=== PATIENT | female | born 1970 | race African-American/Black ===

== ENCOUNTER 2024-08-22 08:09 | Emergency (ER) | payer MEDICAID ==
[~2024-08-22] VITALS: Ht 167.6 cm; Wt 54.4 kg
[2024-08-22 09:19] LABS: BASOPHILS % (AUTO) 0.6 % (0.0-2.0); EOSINOPHILS # (AUTO) 0.1 K/uL (0.0-0.7); EOSINOPHILS % (AUTO) 2.4 % (0.0-7.0); HEMATOCRIT 34.8 % (31.2-41.9); HEMOGLOBIN 11.5 g/dL (10.9-14.3); LYMPHOCYTES # (AUTO) 1.4 K/uL (0.8-4.8); LYMPHOCYTES % (AUTO) 24.4 % (20.5-51.5); MEAN CORPUSCULAR HEMOGLOBIN 28.5 uug (24.7-32.8); MEAN CORPUSCULAR HGB CONC 33 g/dL (32.3-35.6); MEAN CORPUSCULAR VOLUME 86.2 fL (75.5-95.3); MONOCYTES # (AUTO) 0.6 K/uL (0.1-1.30); MONOCYTES % (AUTO) 9.5 % (0.0-11.0); NEUTROPHILS # (AUTO) 3.7 K/uL (1.8-8.9); NEUTROPHILS % (AUTO) 63.1 % (38.5-71.5); PLATELET COUNT (AUTO) 351 K/uL (179-408); RED BLOOD CELL COUNT(AUTO) 4.03 MIL/uL (3.63-4.92); RED CELL DISTRIBUTION WIDTH 16.9 % (12.3-17.7); WHITE BLOOD COUNT (AUTO) 5.8 K/uL (3.8-11.8)
[2024-08-22 09:24] LABS: DIFFERENTIAL COMMENT 1
[2024-08-22] MEDS ORDERED: NITROGLYCERIN OINT 1 GM PACKET TP ONE (09:28)
[2024-08-22] MEDS ORDERED: METOPROLOL TARTRATE 50 MG TABLET ONE (09:28)
[2024-08-22 09:31] LABS: CALCIUM 8.5 mg/dL (8.5-10.1); CARBON DIOXIDE 28 mmol/L (21-32); CHLORIDE 108 mmol/L (98-107); CREATININE 3.3 mg/dL (0.6-1.3); GLUCOSE 242 mg/dL (74-106); POTASSIUM 3.8 mmol/L (3.5-5.1); SODIUM SERUM 144 mmol/L (136-145); UREA NITROGEN, BLOOD 23 mg/dL (7-18)
[2024-08-22] MEDS: NITROGLYCERIN OINT 1 GM PACKET TP ONE (09:32)
[2024-08-22] MEDS: METOPROLOL TARTRATE 50 MG TABLET PO ONE (09:32)
[2024-08-22] MEDS ORDERED: METOPROLOL TARTRATE 5 MG/5 ML VIAL IVP ONE (09:46)
[2024-08-22] MEDS ORDERED: ONDANSETRON 4 MG/2 ML VIAL ONE (09:46)
[2024-08-22] MEDS ORDERED: HYDROMORPHONE 1 MG/1 ML DISP.SYRIN ONE (09:47)
[2024-08-22] MEDS: HYDROMORPHONE 1 MG/1 ML DISP.SYRIN IV ONE (09:50)
[2024-08-22] MEDS: ONDANSETRON 4 MG/2 ML VIAL IV ONE (09:50)
[2024-08-22] MEDS: METOPROLOL TARTRATE 5 MG/5 ML VIAL IVP ONE (09:55)
[2024-08-22] MEDS ORDERED: CLONIDINE HCL 0.1 MG TABLET ONE ×2 (11:08→12:52)
[2024-08-22] MEDS: CLONIDINE HCL 0.1 MG TABLET PO ONE ×2 (11:11→12:57)
[2024-08-22] MEDS ORDERED: HYDR-3980 PO (15:51)
[2024-08-22] MEDS ORDERED: FLAS1KIT2 TP (15:51)
[2024-08-22] MEDS ORDERED: FLAS1EAC2 TP (15:51)
[2024-08-22] MEDS ORDERED: CLON0.3P TD (15:51)
[2024-08-22 17:40] VITALS: BP 148/77; TEMP 97.7; O2SAT 97
== END 2024-08-22 17:45 | disposition home or self-care (01) ==
LOC: ER 08:26
DX: R07.89 Other chest pain (principal); E11.22 Type 2 diabetes mellitus with diabetic chronic kidney disease; I13.11 Hypertensive heart and chronic kidney disease without heart failure, with stage 5 chronic kidney disease, or end stage renal disease; I25.10 Atherosclerotic heart disease of native coronary artery without angina pectoris; N18.6 End stage renal disease; R06.00 Dyspnea, unspecified; Z99.2 Dependence on renal dialysis
CPT/HCPCS: 99285; 78580; 96374; 96375; 71045; 80048; 85025; 85379; 84484 ×2; 36415; 93005; 83605; A9540; J3490; J2405; J1171; A4606; A4663

== ENCOUNTER 2024-08-30 01:08 | Emergency (ER) | payer MEDICAID ==
[~2024-08-30] VITALS: Ht 167.6 cm; Wt 54.4 kg
[~2024-08-30 01:08] MED LIST: CLON0.3P TD; FLAS1EAC2 TP; FLAS1KIT2 TP; HYDR-3980 PO
[2024-08-30] MEDS: hydrALAZINE HCL 20 MG/1 ML VIAL IV ONE ×2 (01:45→05:00)
[2024-08-30] MEDS: HYDROMORPHONE 1 MG/1 ML DISP.SYRIN IV ONE (01:45)
[2024-08-30 01:50] LABS: BASOPHILS # (AUTO) 0.1 K/UL (0.0-0.2); BASOPHILS % (AUTO) 0.7 % (0.0-2.0); EOSINOPHILS # (AUTO) 0.2 K/uL (0.0-0.7); EOSINOPHILS % (AUTO) 2.6 % (0.0-7.0); HEMATOCRIT 33.8 % (31.2-41.9); HEMOGLOBIN 10.9 g/dL (10.9-14.3); LYMPHOCYTES # (AUTO) 2.3 K/uL (0.8-4.8); LYMPHOCYTES % (AUTO) 32.7 % (20.5-51.5); MEAN CORPUSCULAR HEMOGLOBIN 27.6 uug (24.7-32.8); MEAN CORPUSCULAR HGB CONC 32 g/dL (32.3-35.6); MEAN CORPUSCULAR VOLUME 85.4 fL (75.5-95.3); MONOCYTES # (AUTO) 0.5 K/uL (0.1-1.30); MONOCYTES % (AUTO) 6.9 % (0.0-11.0); NEUTROPHILS # (AUTO) 4.1 K/uL (1.8-8.9); NEUTROPHILS % (AUTO) 57.1 % (38.5-71.5); PLATELET COUNT (AUTO) 275 K/uL (179-408); RED BLOOD CELL COUNT(AUTO) 3.96 MIL/uL (3.63-4.92); RED CELL DISTRIBUTION WIDTH 17.3 % (12.3-17.7); WHITE BLOOD COUNT (AUTO) 7.1 K/uL (3.8-11.8)
[2024-08-30 02:11] LABS: DIFFERENTIAL COMMENT 1
[2024-08-30] MEDS ORDERED: HYDROMORPHONE 1 MG/1 ML DISP.SYRIN ONE (02:17)
[2024-08-30] MEDS ORDERED: hydrALAZINE HCL 20 MG/1 ML VIAL ONE ×2 (02:17→04:51)
[2024-08-30 02:19] LABS: ALANINE AMINOTRANSFERASE 11 U/L (14-59); ALKALINE PHOSPHATASE 146 U/L (50-136); ASPARTATE AMINOTRANSFERASE < 5 U/L (15-37); BILIRUBIN,DIRECT 0.1 mg/dL (0.0-0.2); BILIRUBIN,TOTAL 0.1 mg/dL (0.2-1.0); CALCIUM 8.6 mg/dL (8.5-10.1); CARBON DIOXIDE 27 mmol/L (21-32); CHLORIDE 103 mmol/L (98-107); CREATININE 4.4 mg/dL (0.6-1.3); GLUCOSE 220 mg/dL (74-106); NT-PRO BNP 4647 pg/mL (0-125); POTASSIUM 5.2 mmol/L (3.5-5.1); SODIUM SERUM 138 mmol/L (136-145); TOTAL PROTEIN, SERUM 7.2 g/dL (6.4-8.2); UREA NITROGEN, BLOOD 54 mg/dL (7-18)
[2024-08-30] MEDS ORDERED: GABA100C PO (03:31)
[2024-08-30] MEDS ORDERED: HYDR-501 PO (03:31)
[2024-08-30] MEDS: GABAPENTIN 100 MG CAPSULE PO ONE (04:00)
[2024-08-30] MEDS ORDERED: GABAPENTIN 100 MG CAPSULE ONE (04:03)
[2024-08-30 05:45] VITALS: BP 144/83; TEMP 98; O2SAT 98
== END 2024-08-30 05:20 | disposition home or self-care (01) ==
LOC: ER 01:14
DX: R07.89 Other chest pain (principal); G89.29 Other chronic pain; B02.9 Zoster without complications; B02.29 Other postherpetic nervous system involvement; I13.2 Hypertensive heart and chronic kidney disease with heart failure and with stage 5 chronic kidney disease, or end stage renal disease; I50.9 Heart failure, unspecified; N18.6 End stage renal disease; E11.22 Type 2 diabetes mellitus with diabetic chronic kidney disease; E78.5 Hyperlipidemia, unspecified; F41.9 Anxiety disorder, unspecified; Z79.4 Long term (current) use of insulin; Z79.899 Other long term (current) drug therapy; Z86.73 Personal history of transient ischemic attack (TIA), and cerebral infarction without residual deficits; Z99.2 Dependence on renal dialysis
CPT/HCPCS: 99285; 96374; 71045; 96375; 80076; 80048; 83880; 85025; 85730; 84484; 36415; 93005; 96376; J0360 ×2; J1171; A4606; A4663

== ENCOUNTER 2024-09-08 13:13 | Inpatient (IN) | payer MEDICAID ==
[~2024-09-08] VITALS: Ht 162.6 cm; Wt 61.7 kg
[~2024-09-08 13:13] MED LIST changes: +GABA100C PO; +HYDR-501 PO
[2024-09-08 14:56] LABS: BASOPHILS % (AUTO) 0.7 % (0.0-2.0); EOSINOPHILS # (AUTO) 0.2 K/uL (0.0-0.7); EOSINOPHILS % (AUTO) 2.7 % (0.0-7.0); HEMATOCRIT 33.6 % (31.2-41.9); LYMPHOCYTES # (AUTO) 1.7 K/uL (0.8-4.8); LYMPHOCYTES % (AUTO) 30.2 % (20.5-51.5); MEAN CORPUSCULAR HEMOGLOBIN 27.6 uug (24.7-32.8); MEAN CORPUSCULAR HGB CONC 33 g/dL (32.3-35.6); MEAN CORPUSCULAR VOLUME 84.3 fL (75.5-95.3); MONOCYTES # (AUTO) 0.5 K/uL (0.1-1.30); MONOCYTES % (AUTO) 7.9 % (0.0-11.0); NEUTROPHILS # (AUTO) 3.4 K/uL (1.8-8.9); NEUTROPHILS % (AUTO) 58.5 % (38.5-71.5); PLATELET COUNT (AUTO) 268 K/uL (179-408); RED BLOOD CELL COUNT(AUTO) 3.98 MIL/uL (3.63-4.92); RED CELL DISTRIBUTION WIDTH 16.5 % (12.3-17.7); WHITE BLOOD COUNT (AUTO) 5.7 K/uL (3.8-11.8)
[2024-09-08 14:57] LABS: DIFFERENTIAL COMMENT 1
[2024-09-08 15:04] LABS: CALCIUM 8.4 mg/dL (8.5-10.1); CARBON DIOXIDE 26 mmol/L (21-32); CHLORIDE 105 mmol/L (98-107); CREATININE 4.5 mg/dL (0.6-1.3); GLUCOSE 287 mg/dL (74-106); POTASSIUM 4.2 mmol/L (3.5-5.1); SODIUM SERUM 143 mmol/L (136-145); UREA NITROGEN, BLOOD 42 mg/dL (7-18)
[2024-09-08 15:07] LABS: AMMONIA < 10 umol/L (11-32)
[2024-09-08 15:17] LABS: ALANINE AMINOTRANSFERASE 10 U/L (14-59); ALKALINE PHOSPHATASE 134 U/L (50-136); ASPARTATE AMINOTRANSFERASE 7 U/L (15-37); BILIRUBIN,DIRECT 0.1 mg/dL (0.0-0.2); BILIRUBIN,TOTAL 0.3 mg/dL (0.2-1.0); TOTAL PROTEIN, SERUM 6.9 g/dL (6.4-8.2)
[2024-09-08 15:33] LABS: ACETAMINOPHEN < 2.0 ug/mL (10-30)
[2024-09-08 15:47] LABS: ETHANOL < 3 MG/DL (0-10)
[2024-09-08] MEDS ORDERED: ONDANSETRON 4 MG/2 ML VIAL ONE (18:51)
[2024-09-08] MEDS ORDERED: HYDROMORPHONE 1 MG/1 ML DISP.SYRIN ONE (18:52)
[2024-09-08] MEDS: ONDANSETRON 4 MG/2 ML VIAL IV ONE (18:56)
[2024-09-08] MEDS: HYDROMORPHONE 1 MG/1 ML DISP.SYRIN IV ONE (18:57)
[2024-09-08] MEDS ORDERED: REMEDY ESSENTIAL ZINC PASTE 113 GM TP PRN (19:30)
[2024-09-08] MEDS ORDERED: ONDANSETRON 4 MG/2 ML VIAL IV PRN (19:30)
[2024-09-08] MEDS ORDERED: MAGNESIUM HYDROXIDE 30 ML LIQUID UDC PO PRN (19:30)
[2024-09-08] MEDS ORDERED: ACETAMINOPHEN 325 MG TABLET PO PRN (19:30)
[2024-09-09] MEDS ORDERED: MAGNESIUM HYDROXIDE 30 ML LIQUID UDC PO PRN (02:45)
[2024-09-09] MEDS ORDERED: DEXTROSE 50% 50 ML DISP.SYRIN IV PRN (02:45)
[2024-09-09] MEDS: hydrALAZINE HCL 20 MG/1 ML VIAL IV PRN (03:32)
[2024-09-09] MEDS: ACETAMINOPHEN 325 MG TABLET PO PRN (04:37)
[2024-09-09 05:21] VITALS: BP 156/69; TEMP 97.5; O2SAT 99
[2024-09-09] MEDS ORDERED: HYDROMORPHONE 1 MG/1 ML DISP.SYRIN IV PRN (06:00)
[2024-09-09] MEDS ORDERED: HYDROMORPHONE 1 MG/1 ML DISP.SYRIN IV ONE (06:15)
[2024-09-09 06:43] LABS: BASOPHILS % (AUTO) 0.9 % (0.0-2.0); EOSINOPHILS # (AUTO) 0.1 K/uL (0.0-0.7); EOSINOPHILS % (AUTO) 2.5 % (0.0-7.0); HEMOGLOBIN 11.3 g/dL (10.9-14.3); LYMPHOCYTES # (AUTO) 1.5 K/uL (0.8-4.8); LYMPHOCYTES % (AUTO) 27.4 % (20.5-51.5); MEAN CORPUSCULAR HGB CONC 35 g/dL (32.3-35.6); MEAN CORPUSCULAR VOLUME 90.6 fL (75.5-95.3); MONOCYTES # (AUTO) 0.4 K/uL (0.1-1.30); NEUTROPHILS # (AUTO) 3.3 K/uL (1.8-8.9); NEUTROPHILS % (AUTO) 62.2 % (38.5-71.5); PLATELET COUNT (AUTO) 270 K/uL (179-408); RED BLOOD CELL COUNT(AUTO) 3.53 MIL/uL (3.63-4.92); RED CELL DISTRIBUTION WIDTH 16.4 % (12.3-17.7); WHITE BLOOD COUNT (AUTO) 5.3 K/uL (3.8-11.8)
[2024-09-09 06:50] LABS: CALCIUM 8.4 mg/dL (8.5-10.1); CREATININE 5.1 mg/dL (0.6-1.3); MAGNESIUM 1.6 mg/dL (1.8-2.4); PHOSPHOROUS 5.3 mg/dL (2.5-4.9)
[2024-09-09] MEDS: BLOOD SUGAR DIAGNOSTIC 1 EACH STRIP VI SCH (07:19)
[2024-09-09 07:31] LABS: DIFFERENTIAL COMMENT 1
[2024-09-09] MEDS: INSULIN REGULAR, HUMAN 1000 UNIT/10 ML VIAL SQ PRN (07:39)
[2024-09-09] MEDS: GABAPENTIN 100 MG CAPSULE PO SCH ×2 (08:15→16:14)
[2024-09-09] MEDS: MAGNESIUM OXIDE 400 MG TABLET PO ONE (08:47)
[2024-09-09 11:37] VITALS: BP 145/77; TEMP 97.9; O2SAT 99
[2024-09-09] MEDS ORDERED: METO25TA6 PO (13:43)
[2024-09-09] MEDS ORDERED: ASPI81TA31 PO (13:43)
[2024-09-09] MEDS ORDERED: DOCU100T2 PO (13:43)
[2024-09-09] MEDS ORDERED: HYDR-3980 PO (13:43)
[2024-09-09] MEDS ORDERED: GABA100C PO (13:43)
[2024-09-09] MEDS ORDERED: ESCI10TA PO (13:43)
[2024-09-09] MEDS ORDERED: INSU100V7 SQ (13:43)
[2024-09-09] MEDS ORDERED: ATOR20TA PO (13:43)
[2024-09-09] MEDS ORDERED: AMLO10TA59 PO (13:43)
[2024-09-09] MEDS ORDERED: LOSA100T31 PO (13:43)
[2024-09-09] MEDS ORDERED: TRAM50TA2 PO (13:43)
[2024-09-09] MEDS ORDERED: QUET25TA PO (13:43)
[2024-09-09] MEDS ORDERED: TRAMADOL HCL 50 MG TABLET PO PRN (14:00)
[2024-09-09 15:47] VITALS: BP 152/70; TEMP 98.6; O2SAT 94
[2024-09-09] MEDS: DOCUSATE SODIUM 100 MG CAPSULE PO SCH (16:14)
[2024-09-09] MEDS: METOPROLOL TARTRATE 25 MG TABLET PO SCH (16:14)
[2024-09-09] MEDS ORDERED: Medication Not On Formulary EA (Docusate Sodium 100 MG) PO SCH (17:00)
[2024-09-09 19:15] VITALS: BP 148/94; TEMP 97.2; O2SAT 100
[2024-09-09] MEDS: HYDROCODONE/APAP 10-325 MG TABLET PO PRN (22:07)
[2024-09-09] MEDS: QUETIAPINE FUMARATE 25 MG TABLET PO SCH (22:15)
[2024-09-10 06:03] VITALS: BP 154/72; TEMP 96.9; O2SAT 95
[2024-09-10 07:53] LABS: CALCIUM 8.1 mg/dL (8.5-10.1); CREATININE 3.9 mg/dL (0.6-1.3); MAGNESIUM 1.9 mg/dL (1.8-2.4); POTASSIUM 3.7 mmol/L (3.5-5.1)
[2024-09-10] MEDS: AMLODIPINE 10 MG TABLET PO SCH (08:14)
[2024-09-10] MEDS: LOSARTAN POTASSIUM 50 MG TABLET PO SCH (08:14)
[2024-09-10] MEDS: ASPIRIN 81 MG TAB.CHEW PO SCH (08:14)
[2024-09-10] MEDS: ONDANSETRON 4 MG/2 ML VIAL IV PRN (08:23)
[2024-09-10] MEDS ORDERED: Medication Not On Formulary EA (Losartan Potassium 100 MG) PO SCH (09:00)
[2024-09-10] MEDS ORDERED: ESCITALOPRAM OXALATE 10 MG TABLET PO SCH (09:00)
[2024-09-10] MEDS: PANTOPRAZOLE SODIUM 40 MG VIAL IV SCH (09:50)
[2024-09-10 12:14] VITALS: BP 134/73; TEMP 98.2; O2SAT 100
[2024-09-10 16:11] VITALS: BP 124/76; TEMP 98.6; O2SAT 100
[2024-09-10 20:00] VITALS: BP 154/81; TEMP 98; O2SAT 99
[2024-09-10] MEDS: BLOOD SUGAR DIAGNOSTIC 1 EACH STRIP VI ONE (20:20)
[2024-09-11 06:06] LABS: HEPATITIS B SURFACE AB, QUAL Reactive (.); HEPATITIS B SURFACE AG Negative (Negative)
[2024-09-11 06:40] VITALS: BP 156/79; TEMP 98.2; O2SAT 97
[2024-09-11 06:47] LABS: BASOPHILS % (AUTO) 0.7 % (0.0-2.0); EOSINOPHILS # (AUTO) 0.2 K/uL (0.0-0.7); EOSINOPHILS % (AUTO) 3.6 % (0.0-7.0); HEMATOCRIT 33.4 % (31.2-41.9); HEMOGLOBIN 10.8 g/dL (10.9-14.3); LYMPHOCYTES # (AUTO) 1.7 K/uL (0.8-4.8); MEAN CORPUSCULAR HEMOGLOBIN 27.5 uug (24.7-32.8); MEAN CORPUSCULAR HGB CONC 32 g/dL (32.3-35.6); MEAN CORPUSCULAR VOLUME 85.1 fL (75.5-95.3); MONOCYTES # (AUTO) 0.5 K/uL (0.1-1.30); MONOCYTES % (AUTO) 10.8 % (0.0-11.0); NEUTROPHILS # (AUTO) 1.9 K/uL (1.8-8.9); NEUTROPHILS % (AUTO) 44.9 % (38.5-71.5); PLATELET COUNT (AUTO) 268 K/uL (179-408); RED BLOOD CELL COUNT(AUTO) 3.92 MIL/uL (3.63-4.92); WHITE BLOOD COUNT (AUTO) 4.3 K/uL (3.8-11.8)
[2024-09-11 07:10] LABS: DIFFERENTIAL COMMENT 1
[2024-09-11 07:12] LABS: CALCIUM 7.8 mg/dL (8.5-10.1); CREATININE 4.9 mg/dL (0.6-1.3); POTASSIUM 4.1 mmol/L (3.5-5.1)
[2024-09-11] MEDS: PANTOPRAZOLE SODIUM 40 MG TABLET.DR PO SCH (07:45)
[2024-09-11 08:14] VITALS: BP 156/79
[2024-09-11] MEDS: QUETIAPINE FUMARATE 25 MG TABLET PO SCH (08:27)
== END 2024-09-11 15:30 | disposition home or self-care (01) | DRG 241 ==
LOC: ER 13:13 → MEDSURG3 23:00
PROVIDERS: ADMIT Internal Medicine; ATTEND Internal Medicine
PROC: 5A1D70Z Performance of Urinary Filtration, Intermittent, Less than 6 Hours Per Day (ICD-10-PCS; principal; 2024-09-09)
PROC: 0DB68ZX Excision of Stomach, Via Natural or Artificial Opening Endoscopic, Diagnostic (ICD-10-PCS; 2024-09-10)
DX: K29.70 Gastritis, unspecified, without bleeding (principal); G93.41 Metabolic encephalopathy; J90 Pleural effusion, not elsewhere classified; I13.11 Hypertensive heart and chronic kidney disease without heart failure, with stage 5 chronic kidney disease, or end stage renal disease; D63.8 Anemia in other chronic diseases classified elsewhere; F29 Unspecified psychosis not due to a substance or known physiological condition; N18.6 End stage renal disease; E11.22 Type 2 diabetes mellitus with diabetic chronic kidney disease; H54.7 Unspecified visual loss; I69.398 Other sequelae of cerebral infarction; Z99.2 Dependence on renal dialysis; Z79.4 Long term (current) use of insulin; E78.5 Hyperlipidemia, unspecified; E11.42 Type 2 diabetes mellitus with diabetic polyneuropathy; R13.10 Dysphagia, unspecified; K80.20 Calculus of gallbladder without cholecystitis without obstruction
CPT/HCPCS: 36415; 70450; 71045; 83605; 83735; 84100; 84484; 85025; 85730; 86706; 87040; 87340; 90937; C1758; G0378; G0480; J0360; J1171; J1815; J2405; J2470; J7040

== ENCOUNTER 2024-10-19 19:57 | Inpatient (IN) | payer MEDICAID ==
[~2024-10-19] VITALS: Ht 165.1 cm; Wt 57.6 kg
[~2024-10-19 19:57] MED LIST changes: +AMLO10TA59 PO; +ASPI81TA31 PO; +ATOR20TA PO; -CLON0.3P TD; +DOCU100T2 PO; +ESCI10TA PO; -FLAS1EAC2 TP; -FLAS1KIT2 TP; -HYDR-501 PO; +INSU100V7 SQ; +LOSA100T31 PO; +METO25TA6 PO; +QUET25TA PO; +TRAM50TA2 PO
[2024-10-19] MEDS ORDERED: NITROGLYCERIN 0.4 MG/TAB BOTTLE SL ONE (20:38)
[2024-10-19 20:49] LABS: BASOPHILS % (AUTO) 0.8 % (0.0-2.0); EOSINOPHILS # (AUTO) 0.1 K/uL (0.0-0.7); EOSINOPHILS % (AUTO) 1.5 % (0.0-7.0); HEMATOCRIT 34.1 % (31.2-41.9); HEMOGLOBIN 11.1 g/dL (10.9-14.3); LYMPHOCYTES # (AUTO) 1.8 K/uL (0.8-4.8); LYMPHOCYTES % (AUTO) 31.6 % (20.5-51.5); MEAN CORPUSCULAR HEMOGLOBIN 26.6 uug (24.7-32.8); MEAN CORPUSCULAR HGB CONC 33 g/dL (32.3-35.6); MEAN CORPUSCULAR VOLUME 82.1 fL (75.5-95.3); MONOCYTES # (AUTO) 0.5 K/uL (0.1-1.30); MONOCYTES % (AUTO) 9.3 % (0.0-11.0); NEUTROPHILS # (AUTO) 3.2 K/uL (1.8-8.9); NEUTROPHILS % (AUTO) 56.8 % (38.5-71.5); PLATELET COUNT (AUTO) 223 K/uL (179-408); RED BLOOD CELL COUNT(AUTO) 4.15 MIL/uL (3.63-4.92); RED CELL DISTRIBUTION WIDTH 17.4 % (12.3-17.7); WHITE BLOOD COUNT (AUTO) 5.6 K/uL (3.8-11.8)
[2024-10-19] MEDS ORDERED: FAMOTIDINE. 20 MG/2 ML VIAL IV ONE (20:51)
[2024-10-19] MEDS ORDERED: METOCLOPRAMIDE HCL 10 MG/2 ML VIAL ONE (20:51)
[2024-10-19 20:53] LABS: CALCIUM 8.7 mg/dL (8.5-10.1); CARBON DIOXIDE 30 mmol/L (21-32); CHLORIDE 104 mmol/L (98-107); CREATININE 3.7 mg/dL (0.6-1.3); DIFFERENTIAL COMMENT 1; GLUCOSE 174 mg/dL (74-106); POTASSIUM 3.9 mmol/L (3.5-5.1); SODIUM SERUM 139 mmol/L (136-145); UREA NITROGEN, BLOOD 22 mg/dL (7-18)
[2024-10-19] MEDS: METOCLOPRAMIDE HCL 10 MG/2 ML VIAL IV ONE (21:00)
[2024-10-19] MEDS: FAMOTIDINE. 20 MG/2 ML VIAL IV ONE (21:00)
[2024-10-19] MEDS: NITROGLYCERIN 0.4 MG/TAB BOTTLE SL ONE (21:01)
[2024-10-19] MEDS ORDERED: hydrALAZINE HCL 20 MG/1 ML VIAL ONE (21:04)
[2024-10-19] MEDS ORDERED: MORPHINE SULFATE 2 MG/1 ML DISP.SYRIN ONE (21:04)
[2024-10-19 21:06] LABS: ALANINE AMINOTRANSFERASE 17 U/L (14-59); ALBUMIN 2.1 g/dL (3.4-5.0); ALKALINE PHOSPHATASE 93 U/L (50-136); ASPARTATE AMINOTRANSFERASE 21 U/L (15-37); BILIRUBIN,DIRECT 0.1 mg/dL (0.0-0.2); BILIRUBIN,TOTAL 0.1 mg/dL (0.2-1.0); NT-PRO BNP 45522 pg/mL (0-125); TOTAL PROTEIN, SERUM 6.6 g/dL (6.4-8.2)
[2024-10-19] MEDS: hydrALAZINE HCL 20 MG/1 ML VIAL IV ONE (21:28)
[2024-10-19] MEDS: MORPHINE SULFATE 2 MG/1 ML DISP.SYRIN IV ONE (21:29)
[2024-10-19] MEDS: ASPIRIN 81 MG TAB.CHEW PO ONE (21:40)
[2024-10-20] VITALS (12 sets, daily range): BP systolic 142–181; BP diastolic 68–95; TEMP 97.3–98.7; O2SAT 96–100
[2024-10-20] MEDS ORDERED: REMEDY ESSENTIAL ZINC PASTE 113 GM TP PRN (01:00)
[2024-10-20] MEDS ORDERED: ACETAMINOPHEN 325 MG TABLET PO PRN (01:00)
[2024-10-20] MEDS ORDERED: MAGNESIUM HYDROXIDE 30 ML LIQUID UDC PO PRN (01:00)
[2024-10-20] MEDS ORDERED: ONDANSETRON 4 MG/2 ML VIAL IV PRN (01:00)
[2024-10-20] MEDS ORDERED: MORPHINE SULFATE 4 MG/1 ML DISP.SYRIN IV PRN (01:15)
[2024-10-20] MEDS ORDERED: NITROGLYCERIN 0.4 MG/TAB BOTTLE SL PRN ×2 (01:15→05:26)
[2024-10-20] MEDS: TEMAZEPAM 15 MG CAPSULE PO PRN (02:43)
[2024-10-20 05:19] LABS: *BILIRUBIN,URIN NEGATIVE (NEGATIVE); *BLOOD, URINE 2+ (NEGATIVE); *CLARITY,URINE CLEAR (CLEAR); *COLOR,URINE YELLOW (YELLOW); *KETONES,URINE NEGATIVE (NEGATIVE); *UROBILINOGEN,URINE 0.2 E.U./dl (NORMAL); LEUKOCYTE ESTERASE ,URINE NEGATIVE (NEGATIVE); NITRITE, URINE NEGATIVE (NEGATIVE); PH,URINE 8.5 (5.0-8.0)
[2024-10-20 05:27] LABS: *PROTEIN,URINE 3+ (NEGATIVE)
[2024-10-20 05:28] LABS: UGLUCOSE 2+ (NEGATIVE)
[2024-10-20 05:34] LABS: RBC,URINE 20-50 /HPF (0-3)
[2024-10-20 05:35] LABS: BACTERIA,URINE FEW /HPF (NONE SEEN); WBC,URINE 0-3 /HPF (0-3)
[2024-10-20 05:36] LABS: SQUAMOUS EPITHELIAL CELL,UR MODERATE /HPF (NONE SEEN)
[2024-10-20] MEDS: PANTOPRAZOLE SODIUM 40 MG TABLET.DR PO SCH (06:59)
[2024-10-20] MEDS: ASPIRIN 81 MG TAB.CHEW PO SCH (08:47)
[2024-10-20] MEDS: GABAPENTIN 100 MG CAPSULE PO SCH (13:25)
[2024-10-20] MEDS: ALTEPLASE 2 MG VIAL XX ONE (15:55)
[2024-10-20] MEDS: METOPROLOL TARTRATE 25 MG TABLET PO SCH (17:37)
[2024-10-20] MEDS ORDERED: INSULIN GLARGINE,HUM 300 UNITS/3 ML CARTRIDGE SQ SCH (21:00)
[2024-10-20] MEDS: DOCUSATE SODIUM 100 MG CAPSULE PO SCH (21:38)
[2024-10-20] MEDS: QUETIAPINE FUMARATE 25 MG TABLET PO SCH (21:38)
[2024-10-20] MEDS: ATORVASTATIN 20 MG TABLET PO SCH (21:38)
[2024-10-20] MEDS: INSULIN GLARGINE,HUM 300 UNITS/3 ML CARTRIDGE SQ SCH (21:43)
[2024-10-21 06:26] VITALS: BP 169/81; TEMP 98.6; O2SAT 96
[2024-10-21 08:00] VITALS: BP 131/98; TEMP 97.6; O2SAT 97
[2024-10-21] MEDS: AMLODIPINE 10 MG TABLET PO SCH (08:51)
[2024-10-21] MEDS: ASPIRIN 81 MG TAB.CHEW PO SCH (08:51)
[2024-10-21] MEDS: LOSARTAN POTASSIUM 50 MG TABLET PO SCH (08:51)
[2024-10-21] MEDS: ESCITALOPRAM OXALATE 10 MG TABLET PO SCH (08:51)
[2024-10-21] MEDS: HYDROCODONE/APAP 5-325MG TABLET PO PRN (08:52)
[2024-10-21 11:59] VITALS: BP 151/77; TEMP 98.2; O2SAT 97
[2024-10-21] MEDS: HYDROCODONE/APAP 10-325 MG TABLET PO PRN (14:02)
[2024-10-21 14:59] LABS: BASOPHILS % (AUTO) 0.7 % (0.0-2.0); EOSINOPHILS # (AUTO) 0.1 K/uL (0.0-0.7); EOSINOPHILS % (AUTO) 1.4 % (0.0-7.0); HEMATOCRIT 34.4 % (31.2-41.9); HEMOGLOBIN 10.9 g/dL (10.9-14.3); LYMPHOCYTES # (AUTO) 1.5 K/uL (0.8-4.8); LYMPHOCYTES % (AUTO) 22.8 % (20.5-51.5); MEAN CORPUSCULAR HGB CONC 32 g/dL (32.3-35.6); MONOCYTES # (AUTO) 0.7 K/uL (0.1-1.30); MONOCYTES % (AUTO) 10.2 % (0.0-11.0); NEUTROPHILS # (AUTO) 4.2 K/uL (1.8-8.9); NEUTROPHILS % (AUTO) 64.9 % (38.5-71.5); PLATELET COUNT (AUTO) 213 K/uL (179-408); RED CELL DISTRIBUTION WIDTH 17.4 % (12.3-17.7); WHITE BLOOD COUNT (AUTO) 6.5 K/uL (3.8-11.8)
[2024-10-21 15:11] LABS: CALCIUM 8.2 mg/dL (8.5-10.1); CREATININE 2.7 mg/dL (0.6-1.3); MAGNESIUM 1.8 mg/dL (1.8-2.4); PHOSPHOROUS 3.2 mg/dL (2.5-4.9)
[2024-10-21 15:19] LABS: THYROID STIMULATING HORMONE 2.008 mIU/mL (0.358-3.740)
[2024-10-21 15:25] LABS: DIFFERENTIAL COMMENT 1
[2024-10-22 09:06] LABS: HEPATITIS B SURFACE AB, QUAL Reactive (.); HEPATITIS B SURFACE AG Negative (Negative)
== END 2024-10-21 16:05 | disposition home or self-care (01) | DRG 198 ==
LOC: ER 19:57 → TELE3 10-20 00:50 → MEDSURG3 10-21 08:03
PROVIDERS: ADMIT Nurse Practitioner Acute Care; ATTEND Nurse Practitioner Acute Care
PROC: 5A1D70Z Performance of Urinary Filtration, Intermittent, Less than 6 Hours Per Day (ICD-10-PCS; principal; 2024-10-20)
DX: I25.10 Atherosclerotic heart disease of native coronary artery without angina pectoris (principal); I12.0 Hypertensive chronic kidney disease with stage 5 chronic kidney disease or end stage renal disease; E11.22 Type 2 diabetes mellitus with diabetic chronic kidney disease; E11.43 Type 2 diabetes mellitus with diabetic autonomic (poly)neuropathy; K31.84 Gastroparesis; I16.0 Hypertensive urgency; N18.6 End stage renal disease; Z99.2 Dependence on renal dialysis; I69.998 Other sequelae following unspecified cerebrovascular disease; H54.7 Unspecified visual loss; E78.5 Hyperlipidemia, unspecified; E87.70 Fluid overload, unspecified; K29.70 Gastritis, unspecified, without bleeding; Z79.899 Other long term (current) drug therapy; Z86.19 Personal history of other infectious and parasitic diseases; Z79.4 Long term (current) use of insulin; Z79.82 Long term (current) use of aspirin; K21.9 Gastro-esophageal reflux disease without esophagitis
CPT/HCPCS: 36415; 71045; 83690; 83735; 84100; 84443; 84484; 85025; 85730; 86706; 87340; 93307; A4606; A4663; G0378; J0360; J1815; J2270; J2765; J2997; J3490; J7040

== ENCOUNTER 2024-10-28 10:41 | Emergency (ER) | payer MEDICAID ==
[~2024-10-28] VITALS: Ht 165.1 cm; Wt 57.6 kg
[2024-10-28 11:26] LABS: BASOPHILS % (AUTO) 0.8 % (0.0-2.0); EOSINOPHILS # (AUTO) 0.1 K/uL (0.0-0.7); EOSINOPHILS % (AUTO) 2.4 % (0.0-7.0); HEMATOCRIT 33.4 % (31.2-41.9); HEMOGLOBIN 10.7 g/dL (10.9-14.3); LYMPHOCYTES # (AUTO) 1.7 K/uL (0.8-4.8); LYMPHOCYTES % (AUTO) 35.7 % (20.5-51.5); MEAN CORPUSCULAR HEMOGLOBIN 26.8 uug (24.7-32.8); MEAN CORPUSCULAR HGB CONC 32 g/dL (32.3-35.6); MEAN CORPUSCULAR VOLUME 83.5 fL (75.5-95.3); MONOCYTES # (AUTO) 0.4 K/uL (0.1-1.30); NEUTROPHILS # (AUTO) 2.4 K/uL (1.8-8.9); NEUTROPHILS % (AUTO) 52.1 % (38.5-71.5); PLATELET COUNT (AUTO) 261 K/uL (179-408); RED CELL DISTRIBUTION WIDTH 18.8 % (12.3-17.7); WHITE BLOOD COUNT (AUTO) 4.7 K/uL (3.8-11.8)
[2024-10-28 11:27] LABS: DIFFERENTIAL COMMENT 1
[2024-10-28 11:34] LABS: CARBON DIOXIDE 27 mmol/L (21-32); CHLORIDE 107 mmol/L (98-107); CREATININE 7.1 mg/dL (0.6-1.3); GLUCOSE 239 mg/dL (74-106); POTASSIUM 4.6 mmol/L (3.5-5.1); SODIUM SERUM 141 mmol/L (136-145); UREA NITROGEN, BLOOD 66 mg/dL (7-18)
[2024-10-28] MEDS ORDERED: NITROGLYCERIN OINT 1 GM PACKET TP ONE (11:34)
[2024-10-28] MEDS ORDERED: HYDROMORPHONE 1 MG/1 ML DISP.SYRIN ONE (11:34)
[2024-10-28] MEDS ORDERED: ONDANSETRON 4 MG/2 ML VIAL ONE (11:34)
[2024-10-28] MEDS: HYDROMORPHONE 1 MG/1 ML DISP.SYRIN IV ONE (11:36)
[2024-10-28] MEDS: ONDANSETRON 4 MG/2 ML VIAL IV ONE (11:36)
[2024-10-28] MEDS: NITROGLYCERIN OINT 1 GM PACKET TP ONE (11:40)
[2024-10-28 11:50] LABS: NT-PRO BNP 43840 pg/mL (0-125)
[2024-10-28] MEDS ORDERED: LORAZEPAM 2 MG/1 ML VIAL ONE (19:37)
[2024-10-28] MEDS: LORAZEPAM 2 MG/1 ML VIAL IV ONE (19:44)
[2024-10-28 19:57] VITALS: BP 148/72; TEMP 209.7; O2SAT 99
== END 2024-10-28 19:55 | disposition short-term general hospital (02) ==
LOC: ER 10:41
DX: R07.89 Other chest pain (principal); I50.9 Heart failure, unspecified; N18.6 End stage renal disease; E11.22 Type 2 diabetes mellitus with diabetic chronic kidney disease; E78.5 Hyperlipidemia, unspecified; Z99.2 Dependence on renal dialysis; Z79.4 Long term (current) use of insulin; Z79.82 Long term (current) use of aspirin; Z79.899 Other long term (current) drug therapy; Z86.73 Personal history of transient ischemic attack (TIA), and cerebral infarction without residual deficits; Z20.822 Contact with and (suspected) exposure to COVID-19
CPT/HCPCS: 99285; 96374; 96375; 71045; 87426; 80048; 83880; 85025; 85379; 84484 ×3; 36415; 93005; J1171; J2060; J2405; A4606; A4663

== ENCOUNTER 2024-11-18 09:36 | Emergency (ER) | payer MEDICAID ==
[~2024-11-18] VITALS: Ht 157.5 cm; Wt 62.1 kg
[2024-11-18 10:07] LABS: BASOPHILS # (AUTO) 0.1 K/UL (0.0-0.2); EOSINOPHILS # (AUTO) 0.2 K/uL (0.0-0.7); EOSINOPHILS % (AUTO) 2.7 % (0.0-7.0); HEMOGLOBIN 10.7 g/dL (10.9-14.3); LYMPHOCYTES # (AUTO) 1.7 K/uL (0.8-4.8); LYMPHOCYTES % (AUTO) 30.3 % (20.5-51.5); MEAN CORPUSCULAR HEMOGLOBIN 26.5 uug (24.7-32.8); MEAN CORPUSCULAR HGB CONC 32 g/dL (32.3-35.6); MEAN CORPUSCULAR VOLUME 81.6 fL (75.5-95.3); MONOCYTES # (AUTO) 0.6 K/uL (0.1-1.30); MONOCYTES % (AUTO) 10.7 % (0.0-11.0); NEUTROPHILS # (AUTO) 3.1 K/uL (1.8-8.9); NEUTROPHILS % (AUTO) 55.3 % (38.5-71.5); PLATELET COUNT (AUTO) 287 K/uL (179-408); RED BLOOD CELL COUNT(AUTO) 4.04 MIL/uL (3.63-4.92); RED CELL DISTRIBUTION WIDTH 17.2 % (12.3-17.7); WHITE BLOOD COUNT (AUTO) 5.6 K/uL (3.8-11.8)
[2024-11-18 10:08] LABS: DIFFERENTIAL COMMENT 1
[2024-11-18 10:16] LABS: CARBON DIOXIDE 29 mmol/L (21-32); CHLORIDE 101 mmol/L (98-107); CREATININE 4.9 mg/dL (0.6-1.3); GLUCOSE 181 mg/dL (74-106); POTASSIUM 4.1 mmol/L (3.5-5.1); SODIUM SERUM 139 mmol/L (136-145); UREA NITROGEN, BLOOD 32 mg/dL (7-18)
[2024-11-18 10:32] LABS: ALANINE AMINOTRANSFERASE 10 U/L (14-59); ALKALINE PHOSPHATASE 91 U/L (50-136); ASPARTATE AMINOTRANSFERASE 17 U/L (15-37); BILIRUBIN,DIRECT < 0.1 mg/dL (0.0-0.2); BILIRUBIN,TOTAL 0.2 mg/dL (0.2-1.0); NT-PRO BNP 29010 pg/mL (0-125); TOTAL PROTEIN, SERUM 6.5 g/dL (6.4-8.2)
[2024-11-18] MEDS ORDERED: HYDROMORPHONE HCL 2 MG TABLET ONE ×2 (20:12→21:20)
[2024-11-18] MEDS: HYDROMORPHONE HCL 2 MG TABLET PO ONE ×2 (20:17→21:24)
[2024-11-18] MEDS ORDERED: diphenhydrAMINE 50 MG/1 ML VIAL ONE (23:23)
[2024-11-18] MEDS: diphenhydrAMINE 50 MG/1 ML VIAL IM ONE (23:42)
[2024-11-19] MEDS ORDERED: CLONIDINE HCL 0.1 MG TABLET ONE
[2024-11-19] MEDS: CLONIDINE HCL 0.1 MG TABLET PO ONE (00:04)
[2024-11-19 02:10] VITALS: BP 170/72; TEMP 97.9; O2SAT 99
== END 2024-11-19 02:11 ==
LOC: ER 09:57
DX: I13.2 Hypertensive heart and chronic kidney disease with heart failure and with stage 5 chronic kidney disease, or end stage renal disease (principal); I50.9 Heart failure, unspecified; N18.6 End stage renal disease; G89.29 Other chronic pain; M54.9 Dorsalgia, unspecified; R11.0 Nausea; E11.22 Type 2 diabetes mellitus with diabetic chronic kidney disease; E78.5 Hyperlipidemia, unspecified; Z79.4 Long term (current) use of insulin; Z79.82 Long term (current) use of aspirin; Z79.899 Other long term (current) drug therapy; Z86.73 Personal history of transient ischemic attack (TIA), and cerebral infarction without residual deficits; Z99.2 Dependence on renal dialysis
CPT/HCPCS: 99285; 71045; 80076; 80048; 83880; 85025; 85379; 85730; 84484 ×4; 36415; 93005; 96372; J1200; A4606; A4663

== ENCOUNTER 2024-12-03 16:19 | Inpatient (IN) | payer MEDICAID ==
[~2024-12-03] VITALS: Ht 157.5 cm; Wt 59.0 kg
[~2024-12-03 16:19] MED LIST changes: -TRAM50TA2 PO
[2024-12-03] MEDS ORDERED: NITROGLYCERIN OINT 1 GM PACKET TP ONE (17:29)
[2024-12-03] MEDS ORDERED: ASPIRIN 81 MG TAB.CHEW ONE (17:29)
[2024-12-03] MEDS: ASPIRIN 81 MG TAB.CHEW PO ONE (17:32)
[2024-12-03] MEDS: NITROGLYCERIN OINT 1 GM PACKET TP ONE (17:34)
[2024-12-03 17:35] LABS: CALCIUM 10.2 mg/dL (8.5-10.1); CARBON DIOXIDE 29 mmol/L (21-32); CHLORIDE 101 mmol/L (98-107); CREATININE 5.4 mg/dL (0.6-1.3); GLUCOSE 206 mg/dL (74-106); POTASSIUM 4.8 mmol/L (3.5-5.1); SODIUM SERUM 139 mmol/L (136-145); UREA NITROGEN, BLOOD 44 mg/dL (7-18)
[2024-12-03] MEDS ORDERED: ONDANSETRON 4 MG/2 ML VIAL ONE (17:35)
[2024-12-03] MEDS ORDERED: HYDROMORPHONE 1 MG/1 ML DISP.SYRIN ONE (17:35)
[2024-12-03] MEDS ORDERED: METOPROLOL TARTRATE 5 MG/5 ML VIAL IVP ONE (17:35)
[2024-12-03 17:38] LABS: BASOPHILS % (AUTO) 0.9 % (0.0-2.0); DIFFERENTIAL COMMENT 0; EOSINOPHILS # (AUTO) 0.1 K/uL (0.0-0.7); EOSINOPHILS % (AUTO) 2.1 % (0.0-7.0); HEMATOCRIT 34.2 % (31.2-41.9); HEMOGLOBIN 11.1 g/dL (10.9-14.3); LYMPHOCYTES # (AUTO) 1.7 K/uL (0.8-4.8); LYMPHOCYTES % (AUTO) 29.6 % (20.5-51.5); MEAN CORPUSCULAR HGB CONC 32 g/dL (32.3-35.6); MEAN CORPUSCULAR VOLUME 80.5 fL (75.5-95.3); MONOCYTES # (AUTO) 0.4 K/uL (0.1-1.30); MONOCYTES % (AUTO) 7.4 % (0.0-11.0); NEUTROPHILS # (AUTO) 3.5 K/uL (1.8-8.9); PLATELET COUNT (AUTO) 319 K/uL (179-408); RED BLOOD CELL COUNT(AUTO) 4.26 MIL/uL (3.63-4.92); RED CELL DISTRIBUTION WIDTH 17.1 % (12.3-17.7); WHITE BLOOD COUNT (AUTO) 5.8 K/uL (3.8-11.8)
[2024-12-03] MEDS: HYDROMORPHONE 1 MG/1 ML DISP.SYRIN IV ONE ×2 (17:40→20:28)
[2024-12-03] MEDS: ONDANSETRON 4 MG/2 ML VIAL IV ONE (17:40)
[2024-12-03] MEDS: IV NORMAL SALINE 1000 ML BAG IV ONE (17:40)
[2024-12-03] MEDS: METOPROLOL TARTRATE 5 MG/5 ML VIAL IVP ONE (17:40)
[2024-12-03 17:50] LABS: ALANINE AMINOTRANSFERASE 17 U/L (14-59); ALBUMIN 2.8 g/dL (3.4-5.0); ALKALINE PHOSPHATASE 80 U/L (50-136); ASPARTATE AMINOTRANSFERASE 15 U/L (15-37); BILIRUBIN,DIRECT 0.1 mg/dL (0.0-0.2); BILIRUBIN,TOTAL 0.2 mg/dL (0.2-1.0); TOTAL PROTEIN, SERUM 7.8 g/dL (6.4-8.2)
[2024-12-03] MEDS ORDERED: MAGNESIUM HYDROXIDE 30 ML LIQUID UDC PO PRN (20:00)
[2024-12-03] MEDS ORDERED: Medication Not On Formulary EA (Docusate Sodium 100 MG) PO PRN (20:00)
[2024-12-03] MEDS ORDERED: ONDANSETRON 4 MG/2 ML VIAL IV PRN (20:00)
[2024-12-03] MEDS ORDERED: DEXTROSE 50% 50 ML DISP.SYRIN IV PRN (20:00)
[2024-12-03] MEDS ORDERED: DOCUSATE SODIUM 100 MG CAPSULE PO PRN (20:30)
[2024-12-03 20:45] VITALS: BP 166/79; TEMP 98.2; O2SAT 98
[2024-12-03] MEDS: ATORVASTATIN 20 MG TABLET PO SCH (21:16)
[2024-12-03] MEDS: QUETIAPINE FUMARATE 25 MG TABLET PO SCH (21:16)
[2024-12-03] MEDS: BLOOD SUGAR DIAGNOSTIC 1 EACH STRIP VI SCH (21:18)
[2024-12-03] MEDS: HEPARIN SODIUM,PORCINE 5,000 UNITS/ML VIAL SQ SCH (21:18)
[2024-12-03] MEDS: INSULIN REGULAR, HUMAN 300 UNITS/3 ML VIAL SQ PRN (21:26)
[2024-12-03] MEDS: INSULIN GLARGINE,HUM 300 UNITS/3 ML CARTRIDGE SQ SCH (21:29)
[2024-12-03] MEDS: HYDROCODONE/APAP 10-325 MG TABLET PO PRN (21:46)
[2024-12-03] MEDS ORDERED: INSULIN GLARGINE,HUM 300 UNITS/3 ML CARTRIDGE SQ ONE (21:48)
[2024-12-04] VITALS: BP 110/59; TEMP 98.9; O2SAT 97
[2024-12-04] MEDS: ZOLPIDEM 5 MG TABLET PO ONE (01:39)
[2024-12-04] MEDS ORDERED: ZOLPIDEM 5 MG TABLET PO PRN (01:45)
[2024-12-04 04:00] VITALS: BP 114/53; TEMP 98.3; O2SAT 95
[2024-12-04 05:59] LABS: EOSINOPHILS # (AUTO) 0.2 K/uL (0.0-0.7); EOSINOPHILS % (AUTO) 4.9 % (0.0-7.0); HEMATOCRIT 29.9 % (31.2-41.9); HEMOGLOBIN 9.8 g/dL (10.9-14.3); LYMPHOCYTES # (AUTO) 2.4 K/uL (0.8-4.8); LYMPHOCYTES % (AUTO) 50.7 % (20.5-51.5); MEAN CORPUSCULAR HEMOGLOBIN 26.9 uug (24.7-32.8); MEAN CORPUSCULAR HGB CONC 33 g/dL (32.3-35.6); MEAN CORPUSCULAR VOLUME 81.8 fL (75.5-95.3); MONOCYTES # (AUTO) 0.4 K/uL (0.1-1.30); MONOCYTES % (AUTO) 8.1 % (0.0-11.0); NEUTROPHILS # (AUTO) 1.7 K/uL (1.8-8.9); NEUTROPHILS % (AUTO) 35.3 % (38.5-71.5); PLATELET COUNT (AUTO) 294 K/uL (179-408); RED BLOOD CELL COUNT(AUTO) 3.65 MIL/uL (3.63-4.92); RED CELL DISTRIBUTION WIDTH 17.5 % (12.3-17.7); WHITE BLOOD COUNT (AUTO) 4.7 K/uL (3.8-11.8)
[2024-12-04 06:01] LABS: DIFFERENTIAL COMMENT 1
[2024-12-04 06:19] LABS: CALCIUM 9.4 mg/dL (8.5-10.1); CREATININE 6.7 mg/dL (0.6-1.3); MAGNESIUM 2.1 mg/dL (1.8-2.4); PHOSPHOROUS 6.7 mg/dL (2.5-4.9); POTASSIUM 4.4 mmol/L (3.5-5.1)
[2024-12-04 07:59] VITALS: TEMP 98.1; O2SAT 97
[2024-12-04] MEDS: GABAPENTIN 100 MG CAPSULE PO SCH (08:46)
[2024-12-04] MEDS: ASPIRIN 81 MG TAB.CHEW PO SCH (08:46)
[2024-12-04] MEDS: AMLODIPINE 10 MG TABLET PO SCH (08:47)
[2024-12-04] MEDS: ESCITALOPRAM OXALATE 10 MG TABLET PO SCH (08:47)
[2024-12-04] MEDS: METOPROLOL TARTRATE 25 MG TABLET PO SCH (08:47)
[2024-12-04] MEDS: LOSARTAN POTASSIUM 50 MG TABLET PO SCH (08:48)
[2024-12-04] MEDS ORDERED: Medication Not On Formulary EA (Losartan Potassium 100 MG) PO SCH (09:00)
[2024-12-04] MEDS: HYDROMORPHONE 1 MG/1 ML DISP.SYRIN IV ONE (11:56)
[2024-12-04] MEDS: diphenhydrAMINE 25 MG CAP PO ONE (11:56)
[2024-12-04] MEDS: INSULIN REGULAR, HUMAN 1000 UNIT/10 ML VIAL SQ PRN (11:58)
[2024-12-04 12:00] VITALS: BP 169/82; TEMP 97.7; O2SAT 99
[2024-12-04 15:35] VITALS: BP 146/68; TEMP 97.8; O2SAT 99
[2024-12-04] MEDS ORDERED: INSU100I43 SQ (16:51)
[2024-12-04] MEDS ORDERED: HYDR-3973 PO (16:53)
[2024-12-04] MEDS ORDERED: HYDR50TA68 PO (16:54)
[2024-12-04] MEDS ORDERED: TRAZ-252 PO (16:55)
[2024-12-04] MEDS: QUETIAPINE FUMARATE 25 MG TABLET PO SCH (16:56)
[2024-12-04] MEDS ORDERED: HYDR-501 PO (16:57)
[2024-12-04] MEDS ORDERED: NITR0.4T48 SL (16:58)
[2024-12-04 19:00] VITALS: BP 161/94; TEMP 97.6; O2SAT 100
[2024-12-05] VITALS (7 sets, daily range): BP systolic 147–175; BP diastolic 71–89; TEMP 97.8–98.7; O2SAT 96–100
[2024-12-05] MEDS ORDERED: ZOLPIDEM 5 MG TABLET PO PRN (01:00)
[2024-12-05] MEDS: CLONIDINE HCL 0.1 MG TABLET PO PRN (04:59)
[2024-12-05 07:37] LABS: BASOPHILS # (AUTO) 0.1 K/UL (0.0-0.2); BASOPHILS % (AUTO) 1.1 % (0.0-2.0); EOSINOPHILS # (AUTO) 0.2 K/uL (0.0-0.7); EOSINOPHILS % (AUTO) 5.2 % (0.0-7.0); HEMATOCRIT 31.5 % (31.2-41.9); HEMOGLOBIN 10.2 g/dL (10.9-14.3); LYMPHOCYTES # (AUTO) 1.9 K/uL (0.8-4.8); LYMPHOCYTES % (AUTO) 42.3 % (20.5-51.5); MEAN CORPUSCULAR HEMOGLOBIN 26.4 uug (24.7-32.8); MEAN CORPUSCULAR HGB CONC 33 g/dL (32.3-35.6); MEAN CORPUSCULAR VOLUME 81.3 fL (75.5-95.3); MONOCYTES # (AUTO) 0.5 K/uL (0.1-1.30); MONOCYTES % (AUTO) 9.9 % (0.0-11.0); NEUTROPHILS # (AUTO) 1.9 K/uL (1.8-8.9); NEUTROPHILS % (AUTO) 41.5 % (38.5-71.5); PLATELET COUNT (AUTO) 308 K/uL (179-408); RED BLOOD CELL COUNT(AUTO) 3.87 MIL/uL (3.63-4.92); RED CELL DISTRIBUTION WIDTH 17.5 % (12.3-17.7); WHITE BLOOD COUNT (AUTO) 4.6 K/uL (3.8-11.8)
[2024-12-05 08:01] LABS: CALCIUM 8.8 mg/dL (8.5-10.1); CREATININE 4.8 mg/dL (0.6-1.3); POTASSIUM 4.6 mmol/L (3.5-5.1)
[2024-12-05 08:08] LABS: DIFFERENTIAL COMMENT 1
[2024-12-05] MEDS: ACETAMINOPHEN 325 MG TABLET PO PRN (08:31)
[2024-12-05] MEDS: HYDROCODONE/APAP 10-325 MG TABLET PO PRN (12:20)
[2024-12-05] MEDS: LORAZEPAM 0.5 MG TABLET PO PRN (13:40)
[2024-12-05] MEDS: QUETIAPINE FUMARATE 25 MG TABLET PO SCH (17:09)
[2024-12-05] MEDS: MUPIROCIN 2% OINT 22 GM TUBE NS SCH (21:38)
[2024-12-05] MEDS: REMEDY ESSENTIAL ZINC PASTE 113 GM TP PRN (21:39)
[2024-12-06 00:22] VITALS: BP 156/72; TEMP 99.4; O2SAT 98
[2024-12-06 04:57] VITALS: BP 163/90; TEMP 98; O2SAT 98
[2024-12-06 07:31] VITALS: BP 121/66; TEMP 97.7; O2SAT 98
[2024-12-06 11:32] VITALS: BP 141/68; TEMP 97.8; O2SAT 99
[2024-12-06] MEDS: QUETIAPINE FUMARATE 25 MG TABLET PO SCH (12:33)
[2024-12-06 16:00] VITALS: BP 148/74; TEMP 97.3; O2SAT 98
[2024-12-06 19:00] VITALS: BP 151/118; TEMP 97.6; O2SAT 99
[2024-12-06] MEDS: diphenhydrAMINE 50 MG/1 ML VIAL IV PRN (23:42)
[2024-12-07] VITALS: BP 171/79; TEMP 98.7; O2SAT 97
[2024-12-07] MEDS: TEMAZEPAM 7.5 MG CAPSULE PO PRN (02:07)
[2024-12-07 04:00] VITALS: BP 106/68; TEMP 98.2; O2SAT 98
[2024-12-07 07:30] VITALS: BP 150/57; TEMP 97.4; O2SAT 96
[2024-12-07 11:36] VITALS: BP 121/60; TEMP 98.1; O2SAT 98
[2024-12-07 15:58] VITALS: BP 104/54; TEMP 98; O2SAT 98
[2024-12-07 16:36] VITALS: BP 104/54
[2024-12-07] MEDS: IV D5/ 0.9% NACL 1,000 ML IV PRN (16:57)
== END 2024-12-07 18:15 | disposition short-term general hospital (02) | DRG 190 ==
LOC: ER 16:39 → TELE3 20:05
PROVIDERS: ADMIT Nurse Practitioner Acute Care; ATTEND Nurse Practitioner Acute Care
PROC: 5A1D70Z Performance of Urinary Filtration, Intermittent, Less than 6 Hours Per Day (ICD-10-PCS; principal; 2024-12-04)
DX: I25.110 Atherosclerotic heart disease of native coronary artery with unstable angina pectoris (principal); I21.A1 Myocardial infarction type 2; I31.39 Other pericardial effusion (noninflammatory); D68.59 Other primary thrombophilia; N18.6 End stage renal disease; I13.11 Hypertensive heart and chronic kidney disease without heart failure, with stage 5 chronic kidney disease, or end stage renal disease; F29 Unspecified psychosis not due to a substance or known physiological condition; I50.9 Heart failure, unspecified; H54.8 Legal blindness, as defined in USA; G89.4 Chronic pain syndrome; E11.22 Type 2 diabetes mellitus with diabetic chronic kidney disease; E78.5 Hyperlipidemia, unspecified; F41.9 Anxiety disorder, unspecified; I07.1 Rheumatic tricuspid insufficiency; Z86.73 Personal history of transient ischemic attack (TIA), and cerebral infarction without residual deficits; Z99.2 Dependence on renal dialysis; Z78.1 Physical restraint status; Z74.01 Bed confinement status; Z79.4 Long term (current) use of insulin; Z79.899 Other long term (current) drug therapy; F32.A Depression, unspecified
CPT/HCPCS: 36415; 71045; 83605; 83735; 84100; 84484; 85025; 93307; A4606; A4663; G0378; J1171; J1200; J1644; J1815; J2405; J3490; J7040; J7042; Q0163